=== PATIENT | male | born 1965 | race Caucasian/White ===

== ENCOUNTER 2020-08-09 16:09 | Inpatient (IN) | payer BC ==
[2020-08-09 18:15] LABS: EOS % 1.5 % (0-4.5); HEMATOCRIT 36.3 % (35.4-49); HEMOGLOBIN 11.7 GM/dL (11.7-16.9); LYMPH % 23.2 % (8-40); MCH 27.4 pg (25.7-33.7); MCHC 32.3 g/dl (32.0-35.9); MEAN CELL VOLUME 84.9 fl (80-96); MEAN PLT VOLUME 8.8 fl (7.5-11.1); MONO % 8.4 % (3.8-10.2); NEUT % 65.9 % (42.8-82.8); PLATELET COUNT 267 K/MM3 (134-434); RBC 4.28 M/mm3 (4.00-5.60); RDW 16.8 % (11.9-15.9); WHITE BLOOD COUNT 6.2 K/mm3 (4.0-10.0)
[2020-08-09 18:41] LABS: ALBUMIN 3.8 g/dl (3.4-5.0); BLOOD UREA NITROGEN 14.9 mg/dL (7-18); CALCIUM 8.8 mg/dL (8.5-10.1); MAGNESIUM 2.4 mg/dL (1.8-2.4)
[2020-08-09 18:44] LABS: CREATININE 1.1 mg/dL (0.55-1.3); PHOSPHOROUS 4.1 mg/dL (2.5-4.9)
[2020-08-09 18:45] LABS: INR 1.71 (0.83-1.09); PROTHROMBIN TIME (PATIENT) 20.7 SEC (9.7-13.0)
[2020-08-09 18:46] LABS: BILIRUBIN,TOTAL 0.8 mg/dL (0.2-1); TOT PROT 6.9 g/dl (6.4-8.2)
[2020-08-09 18:47] LABS: ACTIVATED PTT 35.7 SECONDS (25.2-36.5)
[2020-08-09 18:49] LABS: N-TERMINAL BNP 2815.4 pg/ml (5-125)
[2020-08-09] MEDS ORDERED: FUROSEMIDE 40 MG/4 ML INJECTABLE VIAL IVPUSH ONE (20:08)
[2020-08-09] MEDS ORDERED: FUROSEMIDE 40 MG/4 ML INJECTABLE VIAL ONE (20:13)
[2020-08-09] MEDS ORDERED: RIVAROXABAN 10 MG TABLET PO STA (23:36)
[2020-08-09] MEDS ORDERED: CARVEDILOL 6.25 MG TABLET (FP) PO ONE (23:37)
[2020-08-10] MEDS ORDERED: FLU VACCINE (FLULAVAL) PF 60 MCG/0.5 ML SYRINGE 2020-2021 IM ONE (00:07)
[2020-08-10] MEDS ORDERED: PNEUMOC 13-VAL CONJ-DIP CRM/PF 0.5 ML DISP.SYRIN IM ONE (00:07)
[2020-08-10] MEDS: FUROSEMIDE 40 MG/4 ML INJECTABLE VIAL IVPUSH SCH ×2 (06:18→13:35)
[2020-08-10] MEDS: INSULIN SLIDING SCALE (NOVOLOG) 1 VIAL SQ SCH ×4 (06:18→21:46)
[2020-08-10] MEDS ORDERED: PT OWN MED DRAWER 7, Y5N ONE ×2 (09:44→10:00)
[2020-08-10] MEDS: hydrALAZINE HCL 25 MG TABLET (FP) PO SCH (09:58)
[2020-08-10] MEDS ORDERED: CARVEDILOL 6.25 MG TABLET (FP) PO SCH (10:00)
[2020-08-10] MEDS ORDERED: LISINOPRIL 10 MG TABLET PO SCH (10:00)
[2020-08-10] MEDS: RIVAROXABAN 10 MG TABLET PO SCH (11:05)
[2020-08-10 12:29] LABS: HEMATOCRIT 35.2 % (35.4-49); HEMOGLOBIN 11.8 GM/dL (11.7-16.9); MCH 27.7 pg (25.7-33.7); MCHC 33.4 g/dl (32.0-35.9); MEAN CELL VOLUME 83.1 fl (80-96); MEAN PLT VOLUME 8.5 fl (7.5-11.1); PLATELET COUNT 284 K/MM3 (134-434); RBC 4.24 M/mm3 (4.00-5.60); RDW 16.9 % (11.9-15.9); WHITE BLOOD COUNT 6.8 K/mm3 (4.0-10.0)
[2020-08-10 12:50] LABS: POTASSIUM 3.4 mmol/L (3.5-5.1)
[2020-08-10 12:54] LABS: ALBUMIN 3.6 g/dl (3.4-5.0); BLOOD UREA NITROGEN 14.1 mg/dL (7-18)
[2020-08-10 12:57] LABS: CREATININE 1.1 mg/dL (0.55-1.3)
[2020-08-10 12:58] LABS: BILIRUBIN,TOTAL 0.8 mg/dL (0.2-1); TOT PROT 6.8 g/dl (6.4-8.2)
[2020-08-10] MEDS: SPIRONOLACTONE 25 MG TABLET PO SCH (18:08)
[2020-08-10] MEDS: CARVEDILOL 6.25 MG TABLET (FP) PO SCH ×2 (18:53→21:46)
[2020-08-11] MEDS: FUROSEMIDE 40 MG/4 ML INJECTABLE VIAL IVPUSH SCH ×2 (06:02→14:21)
[2020-08-11] MEDS: INSULIN SLIDING SCALE (NOVOLOG) 1 VIAL SQ SCH ×4 (06:16→21:51)
[2020-08-11 06:48] LABS: BASO % 1.2 % (0-2.0); EOS % 2.5 % (0-4.5); HEMATOCRIT 35.2 % (35.4-49); HEMOGLOBIN 11.6 GM/dL (11.7-16.9); LYMPH % 27.7 % (8-40); MCH 27.6 pg (25.7-33.7); MEAN CELL VOLUME 83.6 fl (80-96); MEAN PLT VOLUME 8.6 fl (7.5-11.1); MONO % 12.5 % (3.8-10.2); NEUT % 56.1 % (42.8-82.8); PLATELET COUNT 267 K/MM3 (134-434); RBC 4.21 M/mm3 (4.00-5.60); RDW 16.7 % (11.9-15.9); WHITE BLOOD COUNT 6.9 K/mm3 (4.0-10.0)
[2020-08-11] MEDS: hydrALAZINE HCL 25 MG TABLET (FP) PO SCH (09:58)
[2020-08-11] MEDS: SPIRONOLACTONE 25 MG TABLET PO SCH (09:58)
[2020-08-11] MEDS: CARVEDILOL 6.25 MG TABLET (FP) PO SCH ×2 (09:58→21:49)
[2020-08-11] MEDS ORDERED: PT OWN MED DRAWER 7, Y5N ONE (10:01)
[2020-08-11] MEDS: RIVAROXABAN 10 MG TABLET PO SCH (10:02)
[2020-08-11] MEDS: SACUBITRIL/VALSARTAN 24 MG-26 MG TABLET PO SCH (21:49)
[2020-08-12] MEDS: INSULIN SLIDING SCALE (NOVOLOG) 1 VIAL SQ SCH ×3 (06:15→16:56)
[2020-08-12] MEDS: FUROSEMIDE 40 MG/4 ML INJECTABLE VIAL IVPUSH SCH ×2 (06:15→13:30)
[2020-08-12] MEDS ORDERED: PT OWN MED DRAWER 7, Y5N ONE (10:20)
[2020-08-12] MEDS: CARVEDILOL 6.25 MG TABLET (FP) PO SCH ×2 (11:09→21:10)
[2020-08-12] MEDS: hydrALAZINE HCL 25 MG TABLET (FP) PO SCH (11:09)
[2020-08-12] MEDS: SACUBITRIL/VALSARTAN 24 MG-26 MG TABLET PO SCH ×2 (11:10→21:10)
[2020-08-12] MEDS: SPIRONOLACTONE 25 MG TABLET PO SCH (11:10)
[2020-08-12] MEDS: RIVAROXABAN 10 MG TABLET PO SCH (11:10)
[2020-08-12] MEDS ORDERED: POTASSIUM CHLORIDE ORAL LIQUID 20 MEQ/15 ML PO ONE (16:38)
[2020-08-13] MEDS: FUROSEMIDE 40 MG/4 ML INJECTABLE VIAL IVPUSH SCH ×2 (05:50→14:13)
[2020-08-13 07:56] LABS: POTASSIUM 4.2 mmol/L (3.5-5.1)
[2020-08-13 08:00] LABS: CALCIUM 9.3 mg/dL (8.5-10.1)
[2020-08-13 08:04] LABS: CREATININE 1.1 mg/dL (0.55-1.3)
[2020-08-13] MEDS ORDERED: PT OWN MED DRAWER 7, Y5N ONE (09:42)
[2020-08-13] MEDS: hydrALAZINE HCL 25 MG TABLET (FP) PO SCH (09:43)
[2020-08-13] MEDS: SACUBITRIL/VALSARTAN 24 MG-26 MG TABLET PO SCH ×2 (09:44→21:38)
[2020-08-13] MEDS: RIVAROXABAN 10 MG TABLET PO SCH (09:44)
[2020-08-13] MEDS: SPIRONOLACTONE 25 MG TABLET PO SCH (09:44)
[2020-08-13] MEDS: CARVEDILOL 6.25 MG TABLET (FP) PO SCH (09:46)
[2020-08-13 12:28] LABS: MAGNESIUM 2.6 mg/dL (1.8-2.4)
[2020-08-13] MEDS: ISOSORBIDE MONONITRATE 30 MG TAB.SR.24H (FP) PO SCH (14:13)
[2020-08-13] MEDS: ATORVASTATIN CA 40 MG TABLET (FP) PO SCH (21:38)
[2020-08-14 02:06] VITALS: BMI 41.7
[2020-08-14] MEDS: FUROSEMIDE 40 MG/4 ML INJECTABLE VIAL IVPUSH SCH ×2 (05:49→13:15)
[2020-08-14] MEDS: hydrALAZINE HCL 25 MG TABLET (FP) PO SCH (09:37)
[2020-08-14] MEDS: SPIRONOLACTONE 25 MG TABLET PO SCH (09:37)
[2020-08-14] MEDS: ISOSORBIDE MONONITRATE 30 MG TAB.SR.24H (FP) PO SCH (09:37)
[2020-08-14] MEDS: SACUBITRIL/VALSARTAN 24 MG-26 MG TABLET PO SCH ×2 (09:37→21:42)
[2020-08-14] MEDS ORDERED: PT OWN MED DRAWER 7, Y5N ONE (09:38)
[2020-08-14] MEDS: RIVAROXABAN 10 MG TABLET PO SCH (09:39)
[2020-08-14] MEDS ORDERED: CARVEDILOL 6.25 MG TABLET (FP) PO ONE (13:57)
[2020-08-14] MEDS: ATORVASTATIN CA 40 MG TABLET (FP) PO SCH (21:42)
[2020-08-14] MEDS: CARVEDILOL 6.25 MG TABLET (FP) PO SCH (21:43)
[2020-08-15] MEDS: FUROSEMIDE 40 MG/4 ML INJECTABLE VIAL IVPUSH SCH ×2 (05:47→14:09)
[2020-08-15] MEDS ORDERED: PT OWN MED DRAWER 7, Y5N ONE (09:04)
[2020-08-15] MEDS: ISOSORBIDE MONONITRATE 30 MG TAB.SR.24H (FP) PO SCH (09:10)
[2020-08-15] MEDS: hydrALAZINE HCL 25 MG TABLET (FP) PO SCH (09:11)
[2020-08-15] MEDS: SACUBITRIL/VALSARTAN 24 MG-26 MG TABLET PO SCH (09:11)
[2020-08-15] MEDS: SPIRONOLACTONE 25 MG TABLET PO SCH (09:11)
[2020-08-15] MEDS: CARVEDILOL 6.25 MG TABLET (FP) PO SCH (09:11)
[2020-08-15] MEDS ORDERED: CLOPIDOGREL BISULFATE 75 MG TABLET (FP) PO ONE (10:46)
[2020-08-15] MEDS ORDERED: ASPIRIN 81 MG CHEWABLE TABLETS PO SCH (11:00)
[2020-08-15] MEDS: RIVAROXABAN 10 MG TABLET PO SCH (11:16)
[2020-08-15 14:12] VITALS: BP 116/52; PULSE 62; TEMP 97.9
== END 2020-08-15 15:58 | disposition short-term general hospital (02) | DRG 292 ==
LOC: JER 16:09 → JERBED 20:16 → J4S 23:11
PROVIDERS: ADMIT Hospitalist; ATTEND Internal Medicine
DX: I11.0 Hypertensive heart disease with heart failure (principal); I24.8 Other forms of acute ischemic heart disease; I48.92 Unspecified atrial flutter; I31.3 Pericardial effusion (noninflammatory); R18.8 Other ascites; J98.11 Atelectasis; L03.116 Cellulitis of left lower limb; L03.115 Cellulitis of right lower limb; I50.23 Acute on chronic systolic (congestive) heart failure; I50.22 Chronic systolic (congestive) heart failure; I25.5 Ischemic cardiomyopathy; I25.10 Atherosclerotic heart disease of native coronary artery without angina pectoris; E66.9 Obesity, unspecified; Z68.38 Body mass index [BMI] 38.0-38.9, adult; E11.9 Type 2 diabetes mellitus without complications; D35.00 Benign neoplasm of unspecified adrenal gland; R91.8 Other nonspecific abnormal finding of lung field; I48.91 Unspecified atrial fibrillation; R94.39 Abnormal result of other cardiovascular function study; Z95.5 Presence of coronary angioplasty implant and graft
CPT/HCPCS: 36415; 71045-TC-FY; 71275-TC; 78452-TC; 80048; 80053; 80061; 82728; 82962; 83036; 83615; 83721; 83735; 83880; 84100; 84443; 84484; 85025; 85027; 85379; 85610; 85730; 86850; 86900; 86901; 93005; 93010; 93017; 93306-TC; 99285-25; A9502; C9803; Q9967; U0003

== ENCOUNTER 2020-12-28 12:23 | Inpatient (IN) | payer BC ==
[2020-12-28 12:37] VITALS: BMI 41.5
[2020-12-28 12:54] LABS: BASO % 1.1 % (0-2.0); EOS % 1.5 % (0-4.5); HEMATOCRIT 34.4 % (35.4-49); HEMOGLOBIN 11.2 GM/dL (11.7-16.9); LYMPH % 14.3 % (8-40); MCH 26.9 pg (25.7-33.7); MCHC 32.6 g/dl (32.0-35.9); MEAN CELL VOLUME 82.6 fl (80-96); MEAN PLT VOLUME 8.3 fl (7.5-11.1); MONO % 9.9 % (3.8-10.2); NEUT % 73.2 % (42.8-82.8); PLATELET COUNT 308 10^3/uL (134-434); RBC 4.17 M/mm3 (4.00-5.60); RDW 18.1 % (11.9-15.9); WHITE BLOOD COUNT 7.4 K/mm3 (4.0-10.0)
[2020-12-28 13:00] LABS: INR 2.75 (0.83-1.09); PROTHROMBIN TIME (PATIENT) 32.9 SEC (9.7-13.0)
[2020-12-28 13:03] LABS: ACTIVATED PTT 37.7 SECONDS (25.2-36.5)
[2020-12-28 13:15] LABS: ALBUMIN 3.8 g/dl (3.4-5.0)
[2020-12-28 13:19] LABS: BILIRUBIN,TOTAL 1.2 mg/dL (0.2-1)
[2020-12-28 13:23] LABS: N-TERMINAL BNP 3654.9 pg/ml (5-125)
[2020-12-28] MEDS ORDERED: FUROSEMIDE 40 MG/4 ML INJECTABLE VIAL IVPUSH ONE (13:35)
[2020-12-28] MEDS ORDERED: FUROSEMIDE 40 MG/4 ML INJECTABLE VIAL ONE (13:51)
[2020-12-28] MEDS ORDERED: CARVEDILOL 12.5 MG TABLET (FP) PO SCH ×2 (22:41→22:45)
[2020-12-28] MEDS: CARVEDILOL 12.5 MG TABLET (FP) PO SCH (23:03)
[2020-12-29] MEDS: INSULIN SLIDING SCALE (NOVOLOG) 1 VIAL SQ SCH ×2 (07:16→16:16)
[2020-12-29] MEDS: metFORMIN HCL 500 MG TABLET (FP) PO SCH ×2 (07:16→16:18)
[2020-12-29] MEDS: CARVEDILOL 12.5 MG TABLET (FP) PO SCH ×2 (09:52→21:23)
[2020-12-29] MEDS: ASPIRIN COATED 81 MG TABLET.EC PO SCH (09:52)
[2020-12-29] MEDS ORDERED: FUROSEMIDE 20 MG TABLET (FP) PO SCH (10:00)
[2020-12-29] MEDS ORDERED: FUROSEMIDE 40 MG/4 ML INJECTABLE VIAL IVPUSH SCH (10:00)
[2020-12-29] MEDS ORDERED: PT OWN MED DRAWER 7, Y5N ONE (13:30)
[2020-12-29] MEDS: SACUBITRIL/VALSARTAN 49 MG-51 MG TABLET PO SCH ×2 (14:28→21:23)
[2020-12-29] MEDS: RIVAROXABAN 20 MG TABLET PO SCH (17:48)
[2020-12-29] MEDS: FUROSEMIDE 40 MG/4 ML INJECTABLE VIAL IVPUSH SCH (21:23)
[2020-12-29] MEDS: ATORVASTATIN CA 80 MG TABLET (FP) PO SCH (21:23)
[2020-12-30] MEDS: INSULIN SLIDING SCALE (NOVOLOG) 1 VIAL SQ SCH ×2 (06:00→17:09)
[2020-12-30] MEDS: metFORMIN HCL 500 MG TABLET (FP) PO SCH (06:00)
[2020-12-30] MEDS: ASPIRIN COATED 81 MG TABLET.EC PO SCH (09:24)
[2020-12-30] MEDS: CARVEDILOL 12.5 MG TABLET (FP) PO SCH ×2 (09:24→21:08)
[2020-12-30] MEDS: FUROSEMIDE 40 MG/4 ML INJECTABLE VIAL IVPUSH SCH ×2 (09:25→21:08)
[2020-12-30 10:06] LABS: BLOOD UREA NITROGEN 14.8 mg/dL (7-18)
[2020-12-30 10:07] LABS: CALCIUM 8.9 mg/dL (8.5-10.1)
[2020-12-30] MEDS ORDERED: PT OWN MED DRAWER 7, Y5N ONE ×2 (10:20→20:54)
[2020-12-30] MEDS: SACUBITRIL/VALSARTAN 49 MG-51 MG TABLET PO SCH ×2 (10:27→21:08)
[2020-12-30] MEDS: SPIRONOLACTONE 25 MG TABLET PO SCH (10:27)
[2020-12-30] MEDS: RIVAROXABAN 20 MG TABLET PO SCH (17:02)
[2020-12-30] MEDS: ATORVASTATIN CA 80 MG TABLET (FP) PO SCH (21:08)
[2020-12-31] MEDS: INSULIN SLIDING SCALE (NOVOLOG) 1 VIAL SQ SCH ×2 (06:26→17:04)
[2020-12-31 08:31] LABS: BASO % 1.5 % (0-2.0); EOS % 3.1 % (0-4.5); HEMATOCRIT 37.4 % (35.4-49); HEMOGLOBIN 12.2 GM/dL (11.7-16.9); LYMPH % 19.4 % (8-40); MCH 26.9 pg (25.7-33.7); MCHC 32.5 g/dl (32.0-35.9); MEAN CELL VOLUME 82.7 fl (80-96); MEAN PLT VOLUME 8.6 fl (7.5-11.1); MONO % 11.3 % (3.8-10.2); NEUT % 64.7 % (42.8-82.8); PLATELET COUNT 343 10^3/uL (134-434); RBC 4.53 M/mm3 (4.00-5.60); WHITE BLOOD COUNT 7.4 K/mm3 (4.0-10.0)
[2020-12-31 08:54] LABS: ALBUMIN 3.7 g/dl (3.4-5.0); CALCIUM 8.7 mg/dL (8.5-10.1)
[2020-12-31 08:55] LABS: BLOOD UREA NITROGEN 15.9 mg/dL (7-18)
[2020-12-31 08:59] LABS: BILIRUBIN,TOTAL 1.2 mg/dL (0.2-1)
[2020-12-31 09:00] LABS: TOT PROT 7.1 g/dl (6.4-8.2)
[2020-12-31] MEDS ORDERED: PT OWN MED DRAWER 7, Y5N ONE ×2 (09:38→21:15)
[2020-12-31] MEDS: ASPIRIN COATED 81 MG TABLET.EC PO SCH (09:52)
[2020-12-31] MEDS: CARVEDILOL 12.5 MG TABLET (FP) PO SCH ×2 (09:52→21:42)
[2020-12-31] MEDS: SPIRONOLACTONE 25 MG TABLET PO SCH (09:52)
[2020-12-31] MEDS: FUROSEMIDE 40 MG/4 ML INJECTABLE VIAL IVPUSH SCH ×2 (09:53→21:43)
[2020-12-31] MEDS: SACUBITRIL/VALSARTAN 49 MG-51 MG TABLET PO SCH ×2 (09:53→21:43)
[2020-12-31] MEDS ORDERED: POTASSIUM CHLORIDE TABS 20 MEQ TABLET.ER (FP) PO ONE (15:38)
[2020-12-31 16:56] LABS: MAGNESIUM 2.2 mg/dL (1.8-2.4)
[2020-12-31] MEDS: RIVAROXABAN 20 MG TABLET PO SCH (17:04)
[2020-12-31] MEDS: ATORVASTATIN CA 80 MG TABLET (FP) PO SCH (21:43)
[2021-01-01] MEDS: INSULIN SLIDING SCALE (NOVOLOG) 1 VIAL SQ SCH ×2 (06:08→16:58)
[2021-01-01] MEDS: CLOPIDOGREL BISULFATE 75 MG TABLET (FP) PO SCH (09:53)
[2021-01-01] MEDS: SPIRONOLACTONE 25 MG TABLET PO SCH (09:53)
[2021-01-01] MEDS: FUROSEMIDE 40 MG/4 ML INJECTABLE VIAL IVPUSH SCH ×2 (09:53→21:13)
[2021-01-01] MEDS: SACUBITRIL/VALSARTAN 49 MG-51 MG TABLET PO SCH ×2 (09:53→21:13)
[2021-01-01] MEDS: CARVEDILOL 12.5 MG TABLET (FP) PO SCH ×2 (09:53→21:12)
[2021-01-01] MEDS ORDERED: ASPIRIN 81 MG CHEWABLE TABLETS PO SCH (10:00)
[2021-01-01] MEDS: RIVAROXABAN 20 MG TABLET PO SCH (17:04)
[2021-01-01] MEDS ORDERED: PT OWN MED DRAWER 7, Y5N ONE (20:19)
[2021-01-01] MEDS: ATORVASTATIN CA 80 MG TABLET (FP) PO SCH (21:12)
[2021-01-02] MEDS: INSULIN SLIDING SCALE (NOVOLOG) 1 VIAL SQ SCH (06:45)
[2021-01-02 09:15] LABS: CALCIUM 9.3 mg/dL (8.5-10.1)
[2021-01-02 09:16] LABS: BLOOD UREA NITROGEN 21.5 mg/dL (7-18)
[2021-01-02] MEDS ORDERED: PT OWN MED DRAWER 7, Y5N ONE (09:51)
[2021-01-02] MEDS: SACUBITRIL/VALSARTAN 49 MG-51 MG TABLET PO SCH (10:04)
[2021-01-02] MEDS: CLOPIDOGREL BISULFATE 75 MG TABLET (FP) PO SCH (10:04)
[2021-01-02] MEDS: CARVEDILOL 12.5 MG TABLET (FP) PO SCH (10:04)
[2021-01-02] MEDS: FUROSEMIDE 40 MG/4 ML INJECTABLE VIAL IVPUSH SCH (10:04)
[2021-01-02] MEDS: SPIRONOLACTONE 25 MG TABLET PO SCH (10:04)
[2021-01-02 15:30] VITALS: BP 123/67; PULSE 73; TEMP 98.3
== END 2021-01-02 16:29 | disposition home or self-care (01) | DRG 292 ==
LOC: JER 12:23 → JERBED 13:55 → J5S 19:59
PROVIDERS: ADMIT Internal Medicine; ATTEND Internal Medicine
DX: I11.0 Hypertensive heart disease with heart failure (principal); I48.92 Unspecified atrial flutter; J98.11 Atelectasis; I50.23 Acute on chronic systolic (congestive) heart failure; I42.8 Other cardiomyopathies; E11.9 Type 2 diabetes mellitus without complications; I25.10 Atherosclerotic heart disease of native coronary artery without angina pectoris; Z79.01 Long term (current) use of anticoagulants; Z79.84 Long term (current) use of oral hypoglycemic drugs; I44.4 Left anterior fascicular block; I48.91 Unspecified atrial fibrillation; E66.9 Obesity, unspecified; Z68.36 Body mass index [BMI] 36.0-36.9, adult
CPT/HCPCS: 36415; 71045-TC-FY; 80048; 80053; 82962; 83735; 83880; 84100; 84484; 85025; 85610; 85730; 93005; 93010; 93306-TC; 93970-TC; 99285-25; C9803; U0003; U0005

== ENCOUNTER 2023-01-19 14:28 | Emergency (ER) | payer BC ==
[2023-01-19 14:37] VITALS: BP 147/75; PULSE 63; RESP 18; TEMP 98.2; BMI 39.9
[2023-01-19] MEDS ORDERED: LIDOCAINE 5% TOPICAL PATCH TP ONE (15:27)
[2023-01-19] MEDS ORDERED: ACETAMINOPHEN 500 MG TABLET (FP) PO ONE (15:27)
[2023-01-19] MEDS ORDERED: KETOROLAC TROMETHAMINE 30 MG/1 ML VIAL IM ONE (15:27)
[2023-01-19] MEDS ORDERED: ACETAMINOPHEN 500 MG TABLET (FP) ONE (15:30)
[2023-01-19] MEDS ORDERED: LIDOCAINE 5% TOPICAL PATCH ONE (15:30)
[2023-01-19] MEDS ORDERED: KETOROLAC TROMETHAMINE 60 MG/2 ML VIAL ONE (15:32)
[2023-01-19] MEDS ORDERED: LIDOCAINE PATCH REMOVAL MC SCH (22:00)
== END 2023-01-19 16:23 | disposition home or self-care (01) ==
LOC: JERFT 14:28
PROC: 3E0233Z Introduction of Anti-inflammatory into Muscle, Percutaneous Approach (ICD-10-PCS; principal; 2023-01-19)
DX: M79.662 Pain in left lower leg (principal); R22.42 Localized swelling, mass and lump, left lower limb; M54.42 Lumbago with sciatica, left side; S86.892A Other injury of other muscle(s) and tendon(s) at lower leg level, left leg, initial encounter; X58.XXXA Exposure to other specified factors, initial encounter
CPT/HCPCS: 99284-25